=== PATIENT | male | born 1975 | race Caucasian/White ===

== ENCOUNTER → 2024-08-05 08:51 | Outpatient (BNVA) | payer OTHER, SELFPAY | PROVIDERS: Visit Provider Registered Nurse | DX: S00.532A Contusion of oral cavity, initial encounter (principal); S16.1XXA Strain of muscle, fascia and tendon at neck level, initial encounter; S80.212A Abrasion, left knee, initial encounter; W50.0XXA Accidental hit or strike by another person, initial encounter | CPT/HCPCS: 99202 ==

== ENCOUNTER 2024-08-06 10:26 | Emergency (ER) | payer OTHER, SELFPAY ==
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
[2024-08-06 10:27] VITALS: BP 125/88; PULSE 73; RESP 18; TEMP 36.5; O2SAT 97; BMI 29.2
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
[2024-08-06 14:27] VITALS: BP 130/96; PULSE 196; RESP 13; O2SAT 96
[2024-08-06 16:42] VITALS: BP 116/77; PULSE 63; RESP 16; TEMP 36.6; O2SAT 96
[2024-08-06 17:33] VITALS: BP 116/77; PULSE 63; RESP 16; TEMP 36.6; O2SAT 96
== END 2024-08-06 17:34 | disposition home or self-care (01) ==
PROVIDERS: Emergency Provider Emergency Medicine
DX: S09.90XA Unspecified injury of head, initial encounter (principal); W50.0XXA Accidental hit or strike by another person, initial encounter; M54.2 Cervicalgia; Y93.89 Activity, other specified; Y92.219 Unspecified school as the place of occurrence of the external cause; Y99.0 Civilian activity done for income or pay
CPT/HCPCS: 70450; 70486; 72125; 99283; 99284

== ENCOUNTER → 2024-08-11 08:44 | Outpatient (BNVA) | payer OTHER, SELFPAY | PROVIDERS: Visit Provider Physician Assistant Medical | DX: S06.2X0A Diffuse traumatic brain injury without loss of consciousness, initial encounter (principal); S16.1XXA Strain of muscle, fascia and tendon at neck level, initial encounter; S80.212A Abrasion, left knee, initial encounter; X50.0XXA Overexertion from strenuous movement or load, initial encounter | CPT/HCPCS: 99213 ==

== ENCOUNTER → 2024-08-14 09:44 | Outpatient (BNVA) | payer OTHER, SELFPAY | PROVIDERS: Visit Provider Physician Assistant Medical | DX: S06.9X0A Unspecified intracranial injury without loss of consciousness, initial encounter (principal); S16.1XXA Strain of muscle, fascia and tendon at neck level, initial encounter; S13.4XXA Sprain of ligaments of cervical spine, initial encounter; S80.212A Abrasion, left knee, initial encounter; W50.0XXA Accidental hit or strike by another person, initial encounter | CPT/HCPCS: 99213 ==